=== PATIENT | female | born 1960 | race Caucasian/White ===

== ENCOUNTER 2021-06-22 11:33 | Observation (INO) ==
[2021-06-22] MEDS ORDERED: Naloxone 0.4 MG/ML INJ IVP PRN (14:38)
[2021-06-22] MEDS ORDERED: 0.9 % Sodium Chloride 500 ML IVC ONE (23:50)
[2021-06-23] MEDS: Acetaminophen 325 MG TABLET PO PRN ×2 (00:27→09:19)
[2021-06-23] MEDS ORDERED: Ibuprofen 800 MG TABLET PO ONE (03:35)
[2021-06-23 06:40] VITALS: BP 122/69; PULSE 61; TEMP 98; O2SAT 99
== END 2021-06-23 12:14 | disposition home or self-care (01) ==
LOC: 3BNU → SUATTDRO 13:28
PROVIDERS: ADMIT Internal Medicine; ATTEND Internal Medicine